=== PATIENT | male | born 1970 | race Caucasian/White ===

== ENCOUNTER 2018-05-22 08:15 | Day surgery (SDC) | payer OTHER | END 2018-05-22 13:46 | disposition home or self-care (01) | LOC: AMB-ENDOS 08:15 | DX: K64.8 Other hemorrhoids (principal) ==

== ENCOUNTER 2019-12-13 07:53 | Outpatient (CLI) | payer OTHER | END 2019-12-13 08:10 | disposition home or self-care (01) | LOC: SONOGRAMA 07:53 | DX: R94.6 Abnormal results of thyroid function studies (principal); R05 Cough ==

== ENCOUNTER 2019-12-13 08:40 | Outpatient (CLI) | payer OTHER | END 2019-12-13 09:30 | disposition home or self-care (01) | LOC: NUCLEAR 08:40 | DX: R03.0 Elevated blood-pressure reading, without diagnosis of hypertension (principal); R94.31 Abnormal electrocardiogram [ECG] [EKG] ==

== ENCOUNTER 2021-05-05 17:30 | Emergency (ER) | payer OTHER ==
[~2021-05-05] VITALS: Ht 165.1 cm; Wt 72.6 kg
[2021-05-05] MEDS ORDERED: DUI500 PO (20:23)
== END 2021-05-05 20:59 | disposition home or self-care (01) ==
LOC: ER 17:30
DX: L03.116 Cellulitis of left lower limb (principal)

== ENCOUNTER 2022-08-16 10:58 | Emergency (ER) | payer OTHER ==
[~2022-08-16] VITALS: Ht 165.1 cm; Wt 72.6 kg
[~2022-08-16 10:58] MED LIST: DUI500 PO
== END 2022-08-16 15:26 | disposition left against medical advice (07) ==
LOC: ER 10:58
DX: R19.7 Diarrhea, unspecified (principal)